=== PATIENT | male | born 1965 | race Caucasian/White ===

== ENCOUNTER 2024-08-31 11:31 | Emergency (ER) | payer OTHER, SELFPAY ==
--- NOTE | ~2024-08-31 | XR_ITS ---
EXAMINATION: XR SHOULDER, RIGHT CLINICAL INFORMATION: fall COMPARISON: None available. TECHNIQUE: AP external rotation, Grashey, scapular Y, and axillary views of the right shoulder. FINDINGS: AC joint is intact. There is no glenohumeral dislocation. There are no degenerative changes. No fracture line is evident. XR/XR shoulder RT min 2V IMPRESSION: Unremarkable right shoulder Electronically signed by: Esvin Null MD 08/31/2024 12:41 PM EDT
--- NOTE | ~2024-08-31 | XR_ITS ---
EXAMINATION: XR RIBS 3 VIEWS MINIMUM WITH CHEST RIGHT HISTORY: fall COMPARISON: There are no prior studies available for comparison. FINDINGS: A single PA view of the chest and 4 views of the right ribs are submitted. There is subsegmental atelectasis at the left lung base. The right lung is clear. Increased density at the lateral aspect of the right hemithorax may represent a pleural hematoma. There is no pleural effusion, pneumothorax, or pulmonary vascular congestion. The heart size. There are mildly displaced fractures of the right 5th and 6th ribs, and possibly the 7th rib. XR/XR ribs RT min 3V w CXR1V IMPRESSION: Mild displaced fractures of the right 5th and 6th ribs and a possible fracture of the 7th rib. Probable right lateral pleural hematoma. Electronically signed by: Pradip Giordano MD 08/31/2024 12:47 PM EDT
[2024-08-31 11:36] VITALS: BP 160/88; PULSE 100; RESP 18; TEMP 36.6; O2SAT 98; BMI 38.3
--- NOTE | 2024-08-31 11:37 | ED.GENADULT ---
HPI - General Adult General Chief complaint: Extremity Injury, Upper Stated complaint: possibly fell off bed extreme back/chest pain Time Seen by Provider: 08/31/24 13:12 Source: patient, RN notes reviewed and old records reviewed Mode of arrival: ambulatory Limitations: no limitations History of Present Illness ED Provider: Paty [facility] narrative: Patient is a 58-year-old male presenting to the emergency department with complaint of right-sided rib pain. States that he lives in [place] but was visiting his sister and was sleeping on a day bed last night which was pretty elevated off the floor. He states that he does not remember falling out of bed but does remember abruptly waking up on the floor with right rib pain. He is not anticoagulated. Denies headache, neck or back pain. Denies shortness of breath or difficulty breathing. Increased pain with changes in position and movement of right arm. Took some ibuprofen prior to arrival with some relief. MD complaint: rib pain Onset (ago): hour(s) Related Data Previous Rx's ?Medication ?Instructions ?Recorded ibuprofen 600 mg tablet 600 mg PO Q6H PRN pain #20 tabs 08/31/24 lidocaine 5 % topical patch 1 patch topical DAILY #15 ea 08/31/24 oxycodone 5 mg tablet 5 mg PO Q8H PRN severe pain (scale 08/31/24 score 7-10) #10 tabs Allergies Allergy/AdvReac Type Severity Reaction Status Date / Time No Known Allergies Allergy Verified 08/31/24 11:38 Review of Systems Review of Systems: As per HPI Yes all other systems are reviewed and are negative Constitutional: Constitutional: Reports as per HPI [facility] Social History Social History Advance Directives: No Advance Directives Information Provided: Yes Do you have a plan to hurt others: No Plan Physical Exam ED Vital Signs: Vital Signs - 24 hr 08/31/24 11:36 08/31/24 13:26 Temperature 97.9 F Pulse Rate 100 Respiratory Rate 18 Blood Pressure 160/88 H Pulse Oximetry 98 97 Oxygen Delivery Method Room Air Room Air BMI result Body Mass Index 38.3 Vital signs have been reviewed and appear to be correct. Blood pressure normal. Heart rate normal. Respiratory rate normal. Temperature normal. Oxygen saturation normal. Const General: cooperative, healthy appearing and no acute distress Orientation/consciousness: oriented to person, oriented to place, oriented to time and patient oriented x3 Limitations: no limitations HENMT Head: Yes normocephalic and Yes atraumatic Ears: external ears normal General nose exam: Normal external nose present Face and sinus: Yes face symmetric Mouth: oropharynx normal and moist mucous membranes Throat: Yes uvula midline Eyes Pupils: Equal, round and reactive pupils present Neck Neck: Yes normal visual inspection and Yes supple Chest Chest palpation & inspection: normal inspection of the chest and tenderness rib right involving the 4th rib, involving the 5th rib, involving the 6th rib, involving the 7th rib and involving the 8th rib Resp Effort & Inspection: normal respiratory effort, able to speak in complete sentences, respiratory effort not decreased, not labored, no segmental paradox chest wall movement and no use of accessory muscles Auscultation: clear to auscultation bilaterally Cardio Rate: regular rate Rhythm: regular rhythm Heart sounds: S1 normal heart sound present and S2 normal heart sound present GI Palpation (GI): Soft to palpation and nontender Auscultation: normoactive bowel sounds General: Yes no CVA tenderness Back/Spine/Pelvis Back: no CVA tenderness Skin General skin exam: elasticity normal and turgor normal Neuro General: oriented to person, oriented to place, oriented to time, patient oriented x3, moves all extremities, no focal motor deficits and CN's II-XI intact bilaterally Cranial nerves: Yes Equal, round and reactive pupils present Cognition (Neuro): normal cognition Extrem General: Yes full ROM, Yes no pedal edema and Yes no calf tenderness Psych Mental Status: mental status grossly normal Affect: normal affect Thought process: Normal thought process present Course Course Course Narrative: RME, this is a rapid medical exam performed by Bashir Newell please refer to primary provider for complete H&P- 58-year-old male presents for evaluation of right-sided chest and shoulder pain. He reports he believes he fell out of bed last night. Complains of 10/10 pain. Plan for x-rays Medical Decision Making Medical Decision Making MDM Narrative: Patient is a 58-year-old male presenting to the emergency department with complaint of right-sided rib pain. On exam patient is awake, A+Ox3, VS WNL, afebrile, normal neurological exam without focal deficits, physical exam findings as above. Given reported symptoms and physical exam findings, initial differential includes but is not limited to rib contusion vs fracture, right shoulder strain, sprain, fracture. X-ray right shoulder notable for no acute fracture. X-ray right ribs notable for fractures of 5th, 6th, and likely 7th ribs with associated pleural hematoma, no pneumothorax. My interpretation is in agreement with the radiologist's interpretation. Patient is in no respiratory distress and was able to ambulate while maintaining an oxygen saturation of 97% on room air. Case discussed with attending MD, Dr. Lew who does not feel additional imaging is indicated. Will discharge patient on ibuprofen, lidocaine patches and a few oxycodone for severe pain. Follow up with PCP as needed. Return precautions discussed. Patient provided with incentive spirometer and instructions. Patient verbalized understanding of and agreement with plan. Differential Diagnosis Differential Diagnoses: The differential diagnosis associated with the presentation includes As per [facility] Admission/Observation Consideration of admission/observation: Escalation of care including admission/observation considered Patient would have been admitted to the hospital had their work up had any findings where hospital admission was appropriate and their clinical presentation warranted hospital admission. Independent Interpretation I performed an independent interpretation of an: Plain X-Ray Interpretation: Right rib fractures of 5th, 6th and likely 7th ribs on x-ray. No acute fracture right shoulder. Radiology Impression Discussion of test interpretation with radiology: I have reviewed the radiologist's reading. Radiologist Impression: XR/XR ribs RT min 3V w CXR1V IMPRESSION: Mild displaced fractures of the right 5th and 6th ribs and a possible fracture of the 7th rib. Probable right lateral pleural hematoma. XR/XR shoulder RT min 2V IMPRESSION: Unremarkable right shoulder External Record Review External record reviewed: Inpatient record, Office record and Outpatient record Prescription Management I considered prescription management with: Pain Medication Discharge Plan Discharge Clinical Impression: Fracture of right fifth rib, Fracture of right sixth rib Patient Disposition: Home, Self-Care Instructions: How to Use an Incentive Spirometer (ED), Rib Fracture (ED) Additional Instructions: You were evaluated in the emergency department today for rib pain after a fall. Your x-rays showed fractures of your right 5th and 6th ribs and likely your 7th rib. There was also a small amount of bruising to your lung noted. You were provided with an incentive spirometer in the emergency department today, please use this as demonstrated. It is important to take deep breaths to prevent pneumonia. We recommend that you use pillows to splint for comfort. You can take 600 mg ibuprofen or 650 mg of Tylenol every 6 hours for pain. If necessary, you can alternate these medications every 3 hours. For example, at 9:00 a.m. take Tylenol, then at noon take ibuprofen, then at 3:00 p.m. take Tylenol, etc.. You are being prescribed a few oxycodone for severe pain. Follow up with your primary care provider as needed. Return to this or any other emergency department if you develop shortness of breath or difficulty breathing, worsening pain, fever, or any other new or concerning symptoms. Prescriptions: New lidocaine 5 % adhesive patch,medicated 1 patch topical DAILY Qty: 15 0RF Rx Instructions: leave on most painful area for up to 12 hrs ibuprofen 600 mg tablet 600 mg PO Q6H PRN (Reason: pain) Qty: 20 0RF oxycodone 5 mg tablet 5 mg PO Q8H PRN (Reason: severe pain (scale score 7-10)) Qty: 10 0RF Rx Instructions: Partial Fill upon patient request. Print Language: Syriac
[2024-08-31 13:26] VITALS: O2SAT 97
[2024-08-31 14:10] VITALS: BP 0/0; PULSE 84; RESP 18; TEMP 37.1; O2SAT 97
== END 2024-08-31 14:11 | disposition home or self-care (01) ==
PROVIDERS: Emergency Provider Emergency Medicine Emergency Medical Services
DX: S22.41XA Multiple fractures of ribs, right side, initial encounter for closed fracture (principal); W06.XXXA Fall from bed, initial encounter; Y93.84 Activity, sleeping; Y92.009 Unspecified place in unspecified non-institutional (private) residence as the place of occurrence of the external cause; Y99.9 Unspecified external cause status
CPT/HCPCS: 71101; 73030; 99282; 99283

== ENCOUNTER → 2024-08-31 11:37 | Outpatient (BNV) | payer SELFPAY | PROVIDERS: Visit Provider Radiology Diagnostic Radiology | DX: S22.41XA Multiple fractures of ribs, right side, initial encounter for closed fracture (principal); M25.511 Pain in right shoulder; W19.XXXA Unspecified fall, initial encounter | CPT/HCPCS: 71101; 73030 ==

== ENCOUNTER 2024-09-05 08:32 | Emergency (ER) | payer OTHER, SELFPAY ==
[2024-09-05 08:39] VITALS: BP 154/87; PULSE 98; RESP 18; TEMP 36.7; O2SAT 97; BMI 37.1
--- NOTE | 2024-09-05 08:59 | PC.NURSE ---
pt is sitting at edge of bed and speaking in full clear sentecnes, has is in no distress and does not appear to be a fall risk. his main concern is he does not feel he can drive back home to [place] due to his continued pain r/t rib fractures he was noted to have coarse Ls on r side
--- NOTE | 2024-09-05 10:08 | ED.GENADULT ---
HPI - General Adult General Chief complaint: General Medical Stated complaint: Rib fractures Time Seen by Provider: 09/05/24 10:02 Source: patient Mode of arrival: ambulatory Limitations: no limitations History of Present Illness [facility] narrative: This is a [age] years old male presented to the emergency department complaining of right chest wall pain he was seen on the he was diagnosed with a fracture of the right 6th ribs he is here today basically because in his more pain medicine denies any fever chills shortness of breath. Onset (ago): day(s) (2) Location: chest Radiation: non-radiation Severity: mild Quality: burning Pain Consistency: constant Relieving factors: none Exacerbating factors: none Associated symptoms: denies other symptoms Related Data Previous Rx's ?Medication ?Instructions ?Recorded ibuprofen 600 mg tablet 600 mg PO Q6H PRN pain #20 tabs 08/31/24 lidocaine 5 % topical patch 1 patch topical DAILY #15 ea 08/31/24 oxycodone 5 mg tablet 5 mg PO Q8H PRN severe pain (scale 08/31/24 score 7-10) #10 tabs oxycodone 5 mg tablet 5 mg PO Q6H PRN pain #15 tabs 09/05/24 Allergies Allergy/AdvReac Type Severity Reaction Status Date / Time No Known Allergies Allergy Verified 09/05/24 08:44 Review of Systems Review of Systems: Yes all other systems are reviewed and are negative ENT: Reports system reviewed and no additional complaints, except as documented Musculoskeletal: Musculoskeletal: Reports as per [facility] Past Medical History Attestation statement: The following information was validated with the patient. [facility] Narrative: Diabetes hypertension obesity Social History Social History Advance Directives: No Advance Directives Information Provided: Yes Physical Exam ED Vital Signs: Vital Signs - 24 hr 09/05/24 08:39 09/05/24 10:35 Temperature 98.1 F 98.4 F Pulse Rate 98 85 Respiratory Rate 18 16 Blood Pressure 154/87 H 150/90 H Pulse Oximetry 97 98 Oxygen Delivery Method Room Air Room Air BMI result Body Mass Index 37.1 On examination looks well is not toxic he sat is 97% he is breathing at 18/m Const General: cooperative Nutritional Appearance: average body habitus Orientation/consciousness: patient oriented x3 Limitations: no limitations HENMT Head: Yes normal to inspection Ears: hearing grossly normal bilaterally General nose exam: Normal external nose present Face and sinus: Yes normal facial exam Neck Neck: Yes normal visual inspection Chest Chest palpation & inspection: normal inspection of the chest Resp Effort & Inspection: normal respiratory effort Auscultation: clear to auscultation bilaterally Cardio Jugular venous distension: no JVD Rate: regular rate Rhythm: regular rhythm GI Inspection: Yes normal to inspection Palpation (GI): Soft to palpation Auscultation: normal bowel sounds Skin General skin exam: no rashes or lesions noted, elasticity normal and turgor normal Lesions: no lesions Rashes: no rashes Trauma: no lacerations or abrasions Neuro General: patient oriented x3 Medical Decision Making Medical Decision Making [facility] Narrative: Patient is here with a chief complaint of chest wall pain and then diagnosed 2 days ago with rib fracture I do not think we need to do another chest x-ray today oxygen saturation is 97% he is not tachypneic Differential Diagnosis Differential Diagnoses: The differential diagnosis associated with the presentation includes Rib fracture/chest contusion Admission/Observation Consideration of admission/observation: Escalation of care including admission/observation considered Independent Historian Clinical information obtained from an independent historian. History obtained from or confirmed by: Spouse External Record Review External record reviewed: Other ED record Prescription Management I considered prescription management with: Pain Medication Chronic Conditions Patient?s care impacted by: Diabetes and Hypertension Discharge Plan Discharge Clinical Impression: Fracture of ribs, multiple Qualifiers: Encounter type: initial encounter Fracture type: closed Laterality: right Qualified Code(s): S22.41XA - Multiple fractures of ribs, right side, initial encounter for closed fracture Patient Disposition: Home, Self-Care Instructions: Rib Fracture (ED) Prescriptions: New oxycodone 5 mg tablet 5 mg PO Q6H PRN (Reason: pain) Qty: 15 0RF Rx Instructions: partial filing upon pt request; Partial Fill upon patient request. No Action lidocaine 5 % adhesive patch,medicated 1 patch topical DAILY Qty: 15 0RF Rx Instructions: leave on most painful area for up to 12 hrs ibuprofen 600 mg tablet 600 mg PO Q6H PRN (Reason: pain) Qty: 20 0RF oxycodone 5 mg tablet 5 mg PO Q8H PRN (Reason: severe pain (scale score 7-10)) Qty: 10 0RF Rx Instructions: Partial Fill upon patient request. Referrals: Physician,Unknown J [Primary Care Provider, Medical] - 09/07/24 Stand Alone Forms: Work/School Release Interventions: ED Discharge Assessment Last Done: 09/05/24 10:35 Discharge Date/Time: 09/05/24 10:37 Print Language: Georgian
[2024-09-05 10:35] VITALS: BP 150/90; PULSE 85; RESP 16; TEMP 36.9; O2SAT 98
== END 2024-09-05 10:37 | disposition home or self-care (01) ==
PROVIDERS: Emergency Provider Emergency Medicine
DX: S22.41XA Multiple fractures of ribs, right side, initial encounter for closed fracture (principal); R07.89 Other chest pain; X58.XXXA Exposure to other specified factors, initial encounter; Y93.9 Activity, unspecified; Y92.9 Unspecified place or not applicable; Y99.8 Other external cause status
CPT/HCPCS: 99282; 99283